=== PATIENT | female | born 1995 | race Hispanic/Latino ===

== ENCOUNTER 2016-09-05 21:25 | Emergency (ER) | payer OTHER ==
[~2016-09-05] VITALS: Ht 157.5 cm; Wt 96.4 kg
[~2016-09-05 21:25] MED LIST: Benzocaine TOP; Docusate Sodium PO; Hydrocodone/Acetaminophen PO; Ibuprofen PO; Lanolin TOP; TUCPAD TOP
[2016-09-05 21:29] VITALS: BP 110/68; PULSE 78; RESP 16; O2SAT 100
--- NOTE | 2016-09-05 21:57 | ED.REPORT ---
HPI-General Illness Date of Service Sep 05, 2016 ED Provider: Kelton Smith MD The patient is a 21 year old female 7-8 weeks who presents to the ED c/ o pain in her right great toe for the past 4 days. The toenail was ripped off and has been getting increasingly red and swollen since onset. She describes the pain as "throbbing" and 5/10. She has not taken any medication to ease the pain. The pt denies fever and chills. She also has had a rash all over her body for the past 3 years. Her PCP told her it was eczema. She has been trying a topical cream but it has not been effective. Nursing Notes Stated Complaint: RASH ALL OVER BODY Chief Complaint: Skin Rash/Abscess Nursing Notes Reviewed: Yes Allergies: Coded Allergies: No Known Drug Allergies (Verified Allergy, Unknown, 09/05/16) Scheduled PRN ([Benzocaine]) 1 SPRAY/GM SPRAY 1 SPRAY TOP UD PRN PRN For Discomfort ([Docusate Sodium]) 100 MG CAPSULE 100 MG PO DAILY PRN PRN For Constipation ([Hydrocodone/Acetaminophen]) 1 TAB TABLET 1-2 TAB PO Q3 PRN PRN For Pain ([Ibuprofen]) 800 MG TABLET 800 MG PO Q6 PRN PRN For Pain ([Lanolin]) 14 APPLIC/7 GM OINT 1 APPLIC TOP PRN PRN PRN Witch Iza/Glycerin (A.e.r Pads) 12 Towelette/Pkg Towelette 1 TOWELETTE TOP UD PRN PRN perineal discomfort General Time Seen by MD: 21:41 Chief Complaint Other (right great toe pain) Hx Obtained From: Patient Arrived By: Walk-in Sudden in Onset?: Yes Onset Occurred: 4 days ago Symptom Duration: Since onset Caused by: Accidental Location: : Foot right Quality: Painful Severity: Current: Mild Recent Healthcare: No recent doctor visit, No recent hospitalization Similar Sx Previous: No Past Medical History Past Medical History eczema 7-8 weeks (09/05/16) 3, para 2-0-1-2 Past Surgical History denies Smoking History Unknown if Ever Smoker Social History Other Social History: Good social support, , Local resident Ambulatory Status Independent Review of Systems Full Review of Systems Constitutional: Denies: Chills, Fever Musculoskeletal: Reports: Joint pain (right great toe), Joint swelling (right great toe) Skin: Reports Rash Complete sys rev & neg: except as marked. Physical Exam Nursing note and vitals reviewed. Constitutional: Well-developed, well-nourished. Not diaphoretic. Head: Normocephalic and atraumatic. Mouth/Throat: Oropharynx is clear and moist. No oropharyngeal exudate. Eyes: EOM are normal. Pupils are equal, round, and reactive to light. Neck: Supple, no tracheal deviation. Cardiovascular: Normal rate, regular rhythm. Equal and intact distal pulses throughout. Pulmonary/Chest: Effort normal and breath sounds normal. No respiratory distress. Abdominal: Soft. No distension. No tenderness, rebound, or guarding. Musculoskeletal: Range of motion grossly intact, moving all extremities. No edema or tenderness appreciated. Swelling around the right large toe with a small amount of erythema, nail is intact, no subungual hematoma. Exam does appear consistent with an ingrown toenail. Neurological: AOx3. Grossly nonfocal exam. Strength and sensation intact and equal to bilateral upper and lower extremities. Skin: Warm and dry, no rashes or pallor appreciated. Psychiatric: Appropriate mood and affect. Behavior appears normal. Vital Signs Vital Signs Date Time Temp Pulse Resp B/P Pulse Ox O2 Delivery O2 Flow Rate FiO2 09/05/16 21:29 36.4 78 16 110/68 100 Room Air Initial VS: Reviewed Re-Eval/Medical Decision Med Decision/Clinical Course 21-year-old female presenting to the ED for evaluation of toe pain. Physical exam consistent with ingrown toenail. No systemic symptoms or signs of infection. Plan conservative management, follow-up with PCP if no improvement. Patient agreeable to the plan as stated, no further questions. Counseled Regarding: Diagnosis, Lab results, Need for follow-up, When/why to return to ED Discharge & Departure Primary Impression: Infected nailbed of toe Laterality: right Qualified Code: L03.031 - Cellulitis of right toe Disposition: Home Discharge Condition All VS Reviewed: Yes Condition: Stable Patient Instructions: Nail Removal (ED) Additional Instructions: Thank you for entrusting us with your care today. I am sending you home with some antibiotics. If these do not help your toe within the next 1-2 days, schedule an appointment with your primary care physician or a spaghetti press helper for further care. Take Tylenol for the pain, this will not effect your . I recommend you take Benadryl to help with your rash. You can get this at any drug store. It might make you slightly sleepy, do not drive while taking it. Return to the Emergency Department if you experience any new or worsening symptoms. I hope you feel better soon! Referrals: [facility] Scribe Attestation Portion of this note were transcribed by Tammy Leigh. I, Dr. Smith, personally performed the history, physical exam, and medical decision-making: I reviewed and confirmed the accuracy for the information in the transcribed note. Signed by: lily Rm, 09/05/16 [id number] copies to: [facility] Kelton Smith MD Sep 05, 2016 21:57 Tammy Leigh Sep 05, 2016 22:04
== END 2016-09-05 22:15 | disposition home or self-care (01) ==
LOC: SED 21:25
DX: O99.711 Diseases of the skin and subcutaneous tissue complicating pregnancy, first trimester (principal); L03.031 Cellulitis of right toe; L30.9 Dermatitis, unspecified; X58.XXXA Exposure to other specified factors, initial encounter; Y92.9 Unspecified place or not applicable; Y93.89 Activity, other specified; Y99.8 Other external cause status; Z3A.01 Less than 8 weeks gestation of pregnancy